=== PATIENT | male | born 1965 | race Caucasian/White ===

== ENCOUNTER 2016-10-30 11:00 | Outpatient (CLI) | payer MEDICAID, MEDICARE | END 2016-10-30 11:01 | disposition home or self-care (01) | DX: E10.9 Type 1 diabetes mellitus without complications (principal) ==

== ENCOUNTER 2016-11-23 21:16 | Outpatient (CLI) | payer MEDICARE | END 2016-11-23 21:17 | disposition EMS.NT | LOC: EMS 21:16 | PROVIDERS: ATTEND Surgery | DX: R41.82 Altered mental status, unspecified (principal) ==

== ENCOUNTER 2016-11-25 03:29 | Outpatient (CLI) | payer MEDICARE | END 2016-11-25 03:30 | disposition EMS.NT | DX: E11.649 Type 2 diabetes mellitus with hypoglycemia without coma (principal) ==

== ENCOUNTER 2017-01-15 10:47 | Outpatient (CLI) | payer MEDICARE | END 2017-01-15 10:48 | disposition EMS.NT | DX: E16.2 Hypoglycemia, unspecified (principal) ==

== ENCOUNTER 2017-04-21 01:52 | Outpatient (CLI) | payer MEDICARE | END 2017-04-21 01:53 | disposition EMS.NT | LOC: EMS 01:52 | PROVIDERS: ATTEND Surgery | DX: E16.2 Hypoglycemia, unspecified (principal) ==

== ENCOUNTER 2017-05-21 20:36 | Outpatient (CLI) | payer MEDICARE | END 2017-05-21 20:37 | disposition EMS.NT | LOC: EMS 20:36 | PROVIDERS: ATTEND Surgery | DX: E11.649 Type 2 diabetes mellitus with hypoglycemia without coma (principal) ==

== ENCOUNTER 2017-05-22 08:27 | Outpatient (CLI) | payer MEDICARE | END 2017-05-22 08:28 | disposition EMS.NT | LOC: EMS 08:27 | PROVIDERS: ATTEND Surgery | DX: Z03.89 Encounter for observation for other suspected diseases and conditions ruled out (principal) ==

== ENCOUNTER 2017-06-09 15:08 | Outpatient (CLI) | payer MEDICARE | END 2017-06-09 15:09 | disposition EMS.NT | LOC: EMS 15:08 | PROVIDERS: ATTEND Surgery | DX: R46.4 Slowness and poor responsiveness (principal) ==

== ENCOUNTER 2017-08-14 06:03 | Outpatient (CLI) | payer MEDICARE | END 2017-08-14 06:04 | disposition EMS.NT | LOC: EMS 06:03 | PROVIDERS: ATTEND Surgery | DX: Z03.89 Encounter for observation for other suspected diseases and conditions ruled out (principal) ==

== ENCOUNTER 2017-08-19 21:42 | Outpatient (CLI) | payer MEDICARE | END 2017-08-19 21:43 | disposition EMS.NT | LOC: EMS 21:42 | PROVIDERS: ATTEND Surgery | DX: R73.09 Other abnormal glucose (principal) ==

== ENCOUNTER 2017-09-17 03:11 | Outpatient (CLI) | payer MEDICARE | END 2017-09-17 03:12 | disposition EMS.NT | LOC: EMS 03:11 | PROVIDERS: ATTEND Surgery | DX: R41.0 Disorientation, unspecified (principal); R73.09 Other abnormal glucose ==

== ENCOUNTER 2017-10-27 16:05 | Outpatient (CLI) | payer MEDICARE | END 2017-10-27 16:06 | disposition EMS.NT | LOC: EMS 16:05 | PROVIDERS: ATTEND Surgery | DX: R53.83 Other fatigue (principal); R73.09 Other abnormal glucose ==

== ENCOUNTER 2017-11-29 20:53 | Outpatient (CLI) | payer MEDICARE | END 2017-11-29 20:54 | disposition EMS.NT | LOC: EMS 20:53 | PROVIDERS: ATTEND Surgery | DX: R41.82 Altered mental status, unspecified (principal); R73.09 Other abnormal glucose ==

== ENCOUNTER 2017-12-07 17:47 | Outpatient (CLI) | payer MEDICARE | END 2017-12-07 17:48 | disposition critical access hospital (66) | LOC: EMS 17:47 | PROVIDERS: ATTEND Surgery | DX: R46.4 Slowness and poor responsiveness (principal); R73.09 Other abnormal glucose | CPT/HCPCS: A0425; A0427 ==

== ENCOUNTER 2017-12-07 18:08 | Inpatient (IN) | payer MEDICARE ==
--- NOTE | 2017-12-07 18:36 | ED Physician Documentation ---
History of Present Illness - Stated complaint Stated Complaint: AMS - Chief complaint Chief Complaint: Cardiac - History obtained from History obtained from: Patient, Family, EMS - History of Present Illness Timing: Today Pain level max: 0 Pain level now: 0 Improved by: D50 Worsened by: nothing - Additonal information Additional information: Altered mental status today. Blood sugar was 23 upon EMS arrival. Given D50 and Blood sugar improved, but still altered per EMS and family. No history of drug use per family. patient unable to give history. No history of alcoholism. Review of Systems Unable to obtain: AMS Constitutional: denies: Fever GI: denies: Vomiting Neurologic: reports: Confused PD PAST MEDICAL HISTORY - Past Medical History Past Medical History: Yes Cardiovascular: Hypertension Endocrine/Autoimmune: Type 1 diabetes - Past Surgical History Past Surgical History: Yes General: Appendectomy - Present Medications Home Medications: Ambulatory Orders Medication Instructions Recorded Confirmed Aspirin [Aspirin EC] 81 mg PO DAILY 12/07/17 12/07/17 Insulin Aspart [NovoLOG] 12/07/17 Insulin Glargine [Lantus Solostar] 30 12/07/17 Lisinopril [Zestril] 12/07/17 - Allergies Allergies/Adverse Reactions: Allergies Allergy/AdvReac Type Severity Reaction Status Date / Time No Known Drug Allergies Allergy Verified 12/07/17 18:17 - Social History Does the pt smoke?: No Smoking Status: Never smoker Does the pt drink ETOH?: Yes Does the pt have substance abuse?: No PD ED PE NORMAL - Vitals Vital signs reviewed: Yes - General General: No acute distress, Other (alert, disoriented) - HEENT HEENT: Moist mucous membranes - Neck Neck: Supple, no meningeal sign - Cardiac Cardiac: RRR, Strong equal pulses - Respiratory Respiratory: No respiratory distress, Clear bilaterally - Abdomen Abdomen: Other (firm, tender suprapubic.) - Back Back: No spinal TTP - Derm Derm: Warm and dry - Extremities Extremities: No deformity - Neuro Neuro: Other (alert, disoriented) Eye Opening: Spontaneous Motor: Localizes to Pain Verbal: Confused GCS Score: 13 Results - Vitals Vitals: Vital Signs - 24 hr 12/07/17 12/07/17 12/07/17 18:09 19:45 20:25 Temperature 37.0 C Heart Rate 104 H 92 112 H Respiratory 20 16 16 Rate Blood Pressure 142/31 H 146/78 H 210/119 H O2 Saturation 99 95 94 12/07/17 12/07/17 20:45 22:07 Temperature Heart Rate 99 93 Respiratory 18 Rate Blood Pressure 143/131 H O2 Saturation 99 100 Oxygen O2 Source Room air - Labs Labs: Laboratory Tests 12/07/17 12/07/17 12/07/17 18:43 18:43 19:10 WBC 9.3 RBC 4.38 L Hgb 13.3 L Hct 39.5 L MCV 90.2 MCH 30.4 MCHC 33.7 RDW 12.9 Plt Count 227 MPV 7.7 Neut # 8.0 H Lymph # 0.8 L Gentry # 0.5 Eos # 0.0 Baso # 0.0 Absolute Nucleated RBC 0.01 Nucleated RBC % 0.1 Sodium 130 L Potassium 3.1 L Chloride 97 L Carbon Dioxide 26 Anion Gap 7.0 BUN 15 Creatinine 0.6 Estimated GFR (MDRD) 142 Glucose 97 Calcium 8.2 L Total Bilirubin 0.5 AST 27 ALT 26 Alkaline Phosphatase 39 L Total Protein 6.6 L Albumin 4.0 Globulin 2.6 Albumin/Globulin Ratio 1.5 Lipase 17 L Urine Color YELLOW Urine Clarity CLEAR Urine pH 5.5 Ur Specific [place] <=1.005 Urine Protein NEGATIVE Urine Glucose (UA) 100 H Urine Ketones NEGATIVE Urine Occult Blood NEGATIVE Urine Nitrite NEGATIVE Urine Bilirubin NEGATIVE Urine Urobilinogen 0.2 (NORMAL) Ur Leukocyte Esterase NEGATIVE Ur Microscopic Review NOT INDICATED Urine Culture Comments NOT INDICATED Salicylates < 6.0 Urine Opiates Screen NEGATIVE Ur Oxycodone Screen NEGATIVE Urine Methadone Screen NEGATIVE Ur Propoxyphene Screen NEGATIVE Acetaminophen < 10 L Ur Barbiturates Screen NEGATIVE Ur Tricyclics Screen NEGATIVE Ur Phencyclidine Scrn NEGATIVE Ur Amphetamine Screen NEGATIVE U Methamphetamines Scrn NEGATIVE U Benzodiazepines Scrn NEGATIVE Urine Cocaine Screen NEGATIVE U Cannabinoids Screen NEGATIVE Ethyl Alcohol < 5.0 - Rads (name of study) head CT Radiology: Prelim report reviewed, EMP read contemporaneously, See rad report ( No acute intracranial abnormality. ) PD MEDICAL DECISION MAKING - ED course Complexity details: reviewed results, re-evaluated patient, considered differential, d/w patient ED course: Patient is a 52-year-old male who presents to the emergency department with hypoglycemia today. He is on Lantus and was given dextrose by EMS, blood sugar improved and his mental status did improve, but not to his normal baseline. Unclear if he had a seizure due to the hypoglycemia and was thought to be possibly postictal? No acute findings on head CT or laboratory testing to explain his symptoms. His abdomen is firm and bedside ultrasound revealed a very distended bladder. Therefore catheterization was performed in 1 L of urine was drained out of his bladder. He does not have a fever. No leukocytosis. He did improve mentally in the emergency department, but still not back to normal. He also had recurrent hypoglycemia. Therefore he was started on dextrose. We will admit the patient for further evaluation of his altered mental status and recurrent hypoglycemia. Discussed the case with Dr. Dill, who accepts. This document was made in part using voice recognition software. While efforts are made to proofread this document, sound alike and grammatical errors may occur. Departure - Departure Disposition: 66 [facility] DC/[facility] Clinical Impression: Hypoglycemia, Urinary retention Condition: Stable Discharge Date/Time: 12/07/17 23:13
[2017-12-07] MEDS ORDERED: LORazepam 2 MG/ML VIAL IVP STA ×2 (18:58→19:33)
[2017-12-07 19:04] LABS: BASOPHILS % (AUTO) 0.2 %; EOSINOPHILS % (AUTO) 0.3 %; HGB - HEMOGLOBIN 13.3 g/dL (14.0-18.0); LYMPHOCYTES # (AUTO) 0.8 10^3/uL (1.5-3.5); LYMPHOCYTES % (AUTO) 8.4 %; MEAN CORPUSCULAR HEMOGLOBIN 30.4 pg (27.0-31.0); MEAN CORPUSCULAR HGB CONC 33.7 g/dL (32.0-36.0); MEAN CORPUSCULAR VOLUME 90.2 fL (80.0-94.0); MEAN PLATELET VOLUME 7.7 fL (7.4-11.4); MONOCYTES # (AUTO) 0.5 10^3/uL (0.0-1.0); NEUTROPHILS % (AUTO) 86.1 %; PLT - PLATELET COUNT 227 10^3/uL (130-450); RED BLOOD COUNT 4.38 10^6/uL (4.70-6.10); RED CELL DISTRIBUTION WIDTH 12.9 % (12.0-15.0); WHITE BLOOD COUNT 9.3 x10^3/uL (4.8-10.8)
[2017-12-07 19:19] LABS: ALBUMIN/GLOBULIN RATIO 1.5 (1.0-2.2); ALKALINE PHOSPHATASE 39 IU/L (42-121); ALT ALANINE AMINOTRANSFERASE 26 IU/L (10-60); AST ASPARTATE AMINOTRANSFERASE 27 IU/L (10-42); BILIRUBIN,TOTAL 0.5 mg/dL (0.2-1.0); BUN - BLOOD UREA NITROGEN 15 mg/dL (6-20); CALCIUM 8.2 mg/dL (8.5-10.3); CARBON DIOXIDE - CO2 26 mmol/L (21-32); CHLORIDE 97 mmol/L (101-111); CREATININE 0.6 mg/dL (0.6-1.2); GFR - MDRD 142 (>89); GLUCOSE 97 mg/dL (70-100); LIPASE 17 U/L (22-51); SALICYLATE < 6.0 mg/dL; SODIUM 130 mmol/L (135-145); TOTAL PROTEIN 6.6 g/dL (6.7-8.2)
[2017-12-07 19:20] LABS: ACETAMINOPHEN < 10 ug/mL (10-30)
[2017-12-07 19:23] LABS: MUDS CUTOFF CONCENTRATIONS CUTOFF CONC BELOW:
[2017-12-07 19:25] LABS: BILIRUBIN,URINE NEGATIVE (NEGATIVE); GLUCOSE, URINE (UA) 100 mg/dL (NEGATIVE); KETONES,URINE (UA) NEGATIVE (NEGATIVE); LEUKOCYTE ESTERASE, URINE NEGATIVE (NEGATIVE); NITRITE,URINE NEGATIVE (NEGATIVE); OCCULT BLOOD,URINE NEGATIVE (NEGATIVE); PH,URINE 5.5 PH (5.0-7.5); PROTEIN,URINE NEGATIVE (NEGATIVE); UROBILINOGEN,URINE 0.2 (NORMAL) E.U./dL (NORMAL)
[2017-12-07 19:26] LABS: CLARITY,URINE CLEAR (CLEAR)
[2017-12-07] MEDS ORDERED: HALOPERIDOL 5 MG/ML VIAL IVP STA (19:33)
[2017-12-07 19:36] LABS: AMPHETAMINE SCREEN,URINE NEGATIVE (NEGATIVE); BENZODIAZEPINES SCREEN, URINE NEGATIVE (NEGATIVE); COCAINE SCREEN URINE NEGATIVE (NEGATIVE); METHADONE SCREEN, URINE NEGATIVE (NEGATIVE); METHAMPHETAMINES SCREEN, URINE NEGATIVE (NEGATIVE); OPIATE SCREEN, URINE NEGATIVE (NEGATIVE); OXYCODONE SCREEN, URINE NEGATIVE (NEGATIVE); PROPOXYPHENE SCREEN, URINE NEGATIVE (NEGATIVE); TRICYCLIC ANTIDEPRESSANT,URINE NEGATIVE (NEGATIVE)
[2017-12-07] MEDS ORDERED: DEXTROSE 50% ABBOJECT 25 GM/50 ML SYRINGE IVP STA (19:41)
[2017-12-07] MEDS ORDERED: DEXTROSE 50% ABBOJECT 25 GM/50 ML SYRINGE ONE (19:53)
--- NOTE | 2017-12-07 20:19 | CT Preliminary Report ---
Exam: CT HEAD W/O IMPRESSION: No acute intracranial abnormality. [facility] SITE ID: [id number]
--- NOTE | 2017-12-07 20:19 | CT Report ---
EXAM: CT HEAD EXAM DATE: 12/07/2017 07:58 PM. CLINICAL HISTORY: Altered level of consciousness. Found unresponsive. Hypoglycemia with blood sugar 2 3. History of type 1 diabetes. COMPARISON: None. TECHNIQUE: Multiaxial CT images were obtained from the foramen magnum to the vertex. Reformats: Coron al. IV contrast: None. In accordance with CT protocol optimization, one or more of the following dose reduction techniques w ere utilized for this exam: automated exposure control, adjustment of mA and/or KV based on patient s ize, or use of iterative reconstructive technique. FINDINGS: Parenchyma: No intraparenchymal hemorrhage, mass effect, or CT findings of evolving acute/subacute in farct. Pandey-white differentiation is distinct. Extraaxial Spaces: Normal for age. No subdural or epidural collections identified. Ventricles: Normal in size and position. Sinuses and Orbits: Imaged paranasal sinuses, orbits, and mastoids show no significant abnormality. Bones: No evidence of fracture or calvarial defect. Other: The visualized superficial soft tissues are unremarkable; no hematoma or edema is evident. Pos t left enucleation. IMPRESSION: No acute intracranial abnormality. [facility] Referring Provider Line: [phone] SITE ID: [id number]
[2017-12-07] MEDS ORDERED: DEXTROSE 5%-0.9% NACL 1,000 ML IV STA (20:49)
[2017-12-07] MEDS ORDERED: KETAMINE 500 MG/10 ML VIAL IM STA (21:46)
[2017-12-07] MEDS ORDERED: SODIUM CHLORIDE FLUSH 0.9% 10 ML SYRINGE IVP PRN (22:20)
[2017-12-07] MEDS ORDERED: HYDROcod/ACETAM 5/325 MG TABLET PO PRN (22:20)
--- NOTE | 2017-12-07 23:22 | HISTORY & PHYSICAL EXAMINATION ---
Chief Complaint - Chief Complaint Chief Complaint: persistant hypoglycenia History of Present Illness - Admitted From Admitted From:: home - History Obtained From History obtained from: ED physician, brother Exam Limitations: pt is sedated - History of Present Illness HPI Comment/Other: Mr. Adam Pastrana is a 52-year-old gentleman with a long history of Type 1 diabetes, onset age 8, who has been having multiple episodes of hypoglycemia over the last couple of years. He has had multiple visits to the emergency department and he usually comes out of these hypoglycemic events with little residual mental status changes however this time the patient's mental status has not cleared despite his blood sugar being normalized. He was found on the floor by his mother who he lives with and brought via EMS to the emergency department where he was found to be significantly hypoglycemic. He had been given D50 in the ambulance however he needed another dose of D50 while in the emergency department. He has been on Lantus and his medication doses have been changed recently according to the family. He will be admitted to medical surgical bed with hourly blood sugar testing and a sliding scale coverage. CT brain scan was negative for any acute pathology and if the patient's mentation does not improve overnight we will consider MRI studies. History - Past Medical History Cardiovascular: reports: Hypertension Endocrine/Autoimmune: reports: Type 1 diabetes MRSA Hx?: No - Past Surgical History General: reports: Appendectomy - Family & Social History Family History: Mother: Alive and Well, Father: (age 81, possible heart failure), Other family: Diabetes, Type 2 (brother) Family History Comment/Other: Family history was obtained from the patient's brother over the telephone; the brother had been drinking and the family history may not be complete. Living arrangement: At home Living Situation: With family - Substance History Use: Uses substance without health or social issues: Alcohol Abuse: Recurrent use of substance despite neg consequences: NONE Dependence: Experiences withdrawal or developed tolerances: NONE - POLST Patient has POLST: No POLST Status: Full Code Meds/Allgy - Home Medications Home Medications: Ambulatory Orders Medication Instructions Recorded Confirmed Aspirin [Aspirin EC] 81 mg PO DAILY 12/07/17 12/07/17 Insulin Aspart [NovoLOG] 12/07/17 Insulin Glargine [Lantus Solostar] 30 12/07/17 Lisinopril [Zestril] 12/07/17 - Allergies Allergies/Adverse Reactions: Allergies Allergy/AdvReac Type Severity Reaction Status Date / Time No Known Drug Allergies Allergy Verified 12/07/17 18:17 Review of Systems - Other Findings Other Findings: I am unable to perform review of systems on this patient as he has been sedated for catheterization. Additionally, his presenting complaint is altered mental status. Exam - Vital Signs Reviewed Vital Signs: Yes Vital Signs: Vital Signs x48h Temp Pulse Resp BP Pulse Ox 12/07/17 22:30 107 H 19 202/116 H 98 12/07/17 22:25 112 H 16 210/119 H 94 12/07/17 22:07 93 143/131 H 100 12/07/17 20:45 99 18 99 12/07/17 20:25 112 H 16 210/119 H 94 12/07/17 19:45 92 16 146/78 H 95 12/07/17 18:09 37.0 C 104 H 20 142/31 H 99 - Physical Exam General Appearance: positive: No acute distress, Lethargic Eyes Bilateral: positive: Normal inspection, PERRL, EOMI, No lid inflammation, Conjunctivae nml, No scleral icterus ENT: positive: ENT inspection nml, Pharynx nml, No signs of dehydration Neck: positive: Nml inspection, Thyroid nml, No JVD, Trachea midline. negative : Thyromegaly Respiratory: positive: No respiratory distress, Breath sounds nml. negative: Wheezes, Rales, Rhonchi Cardiovascular: positive: Regular rate & rhythm, No murmur, No gallop Peripheral Pulses: positive: 1+ Abdomen: positive: Non-tender, No organomegaly, Nml bowel sounds, No distention. negative: Guarding, Rebound Back: positive: Nml inspection. negative: CVA tenderness (R), CVA tenderness (L ) Skin: positive: Color nml, No rash, Warm, Dry. negative: Cyanosis Extremities: positive: Non-tender, Full ROM, Nml appearance, No pedal edema Neurologic/Psychiatric: positive: Other (Patient is sedated however nursing states that he was only oriented to person prior to sedation.) Conclusion/Plan - Problem List (1) Altered mental status Conclusion/Plan: The patient has had multiple ER visits for hypoglycemia and typically returns back to his baseline mentation while in the emergency department. This did not happen this time and the patient has required several doses of D50 to keep up with his dropping blood sugar. There is some question as to whether or not the patient has undergone a seizure however the CT of the brain was essentially negative. Will monitor the patient overnight, and his mentation remains impaired we will get an MRI of his brain in the morning. (2) Hypoglycemia Conclusion/Plan: Almost certainly due to exogenous long-acting insulin. We will check the patient's blood sugars hourly and cover him with D50 and sliding scale until we are sure that the effects of the Lantus have passed. The patient will need to have a new medication regimen as these episodes of hypoglycemia have become fairly regular. (3) Urinary retention Conclusion/Plan: Approximately 2 L urine n the bladder seen on presentation to the emergency department, the patient has had a Ortiz catheter placed. Likely secondary to BPH. We will continue to monitor. (4) Type 1 diabetes mellitus on insulin therapy Conclusion/Plan: The patient's blood sugars have been extremely labile and he is a brittle diabetic. We will stop Lantus and just cover the patient with sliding scale at this time. The patient's medication regimen will need to be adjusted as he has had frequent episodes of hypoglycemia on his current regimen. (5) Hyponatremia Conclusion/Plan: Mild, correcting. - Lab Results Lab results reviewed: Yes Fish Bones: 12/07/17 18:43 12/07/17 18:43 - Diagnostic Imaging Results Diagnostic Imaging Results: positive: Final report reviewed Diagnostic Imaging Results Comments: EXAM: CT HEAD EXAM DATE: 12/07/2017 07:58 PM. CLINICAL HISTORY: Altered level of consciousness. Found unresponsive. Hypoglycemia with blood sugar 23. History of type 1 diabetes. COMPARISON: None. TECHNIQUE: Multiaxial CT images were obtained from the foramen magnum to the vertex. Reformats: Coronal. IV contrast: None. In accordance with CT protocol optimization, one or more of the following dose reduction techniques were utilized for this exam: automated exposure control, adjustment of mA and/or KV based on patient size, or use of iterative reconstructive technique. FINDINGS: Parenchyma: No intraparenchymal hemorrhage, mass effect, or CT findings of evolving acute/subacute infarct. Pandey-white differentiation is distinct. Extraaxial Spaces: Normal for age. No subdural or epidural collections identified. Ventricles: Normal in size and position. Sinuses and Orbits: Imaged paranasal sinuses, orbits, and mastoids show no significant abnormality. Bones: No evidence of fracture or calvarial defect. Other: The visualized superficial soft tissues are unremarkable; no hematoma or edema is evident. Post left enucleation. IMPRESSION: No acute intracranial abnormality. Core Measures - Anticipated LOS I expect patient to be DC'd or transferred within 96 hours.: Yes - DVT/VTE - Prophylaxis VTE/DVT Device ordered at admit?: Yes
[2017-12-07] MEDS: SODIUM CHLORIDE 1 GM TABLET PO SCH (23:52)
[2017-12-08] MEDS: SODIUM CHLORIDE FLUSH 0.9% 10 ML SYRINGE IVP SCH ×2 (00:08→09:18)
[2017-12-08] MEDS: NS W/40 MEQ KCL 1,000 ML IV SCH ×2 (00:15→10:16)
[2017-12-08 00:57] LABS: HB2 TOTAL 14.7 g/dL; HEMOGLOBIN A1C 0.84 g/dL; HEMOGLOBIN A1C % 7.4 % (4.6-6.2)
[2017-12-08] MEDS ORDERED: INSULIN ASPART 300 UNIT/3 ML PEN SUBQ SCH (08:00)
[2017-12-08 08:05] VITALS: BP 143/94
[2017-12-08 08:06] LABS: CALCIUM 8.4 mg/dL (8.5-10.3); CREATININE 0.8 mg/dL (0.6-1.2)
[2017-12-08] MEDS ORDERED: ASPIRIN EC 81 MG TABLET PO SCH (09:00)
[2017-12-08] MEDS ORDERED: POLYETHYLENE GLYCOL 3350 17 GM PACKET PO SCH (09:00)
[2017-12-08] MEDS ORDERED: LISINOPRIL 5 MG TABLET PO SCH (09:00)
[2017-12-08] MEDS: SODIUM CHLORIDE 1 GM TABLET PO SCH (09:18)
--- NOTE | 2017-12-08 10:54 | Discharge Plan ---
Discharge Plan Disposition: 01 Home, Self Care Condition: Stable Diet: Diabetic Activity Restrictions: Activity as Tolerated Instruction Topics: Hypoglycemia Additional Instructions or Follow Up instructions: DECREASE YOUR LANTUS INSULIN DOSES TO 5 U TWICE A DAY. DECREASE YOUR MEALTIME ASPART INSULIN TO 5 U WITH EACH MEAL. The aspirin and Lisiniopril can be resumed. See Dr Ng this week to adjust your diabetic management and for follow-up of the prolonged unresponsiveness, and to get a referral to Neurology. Our [facility] clinic here also offers Diabetic management. Follow-Up Care: [facility] - Diabetes Ed No Smoking: If you smoke, Please STOP! Call for help. Follow-up with: Andrzej Ng MD [Provider Admit Priv/Credential] -
--- NOTE | 2017-12-09 02:16 | DISCHARGE SUMMARY ---
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 The patient again had altered mental status with an episode of hypoglycemia, EMS arrived, despite D50 injection, he remained altered and flaccid. He had another blood sugar that did rise to 160s, he did get another D50 in the ambulance and was brought to the emergency room, where he still had delayed awakening and was therefore admitted for evaluation and management of altered mental status and hypoglycemia. HOSPITAL COURSE AND DISCHARGE DIAGNOSES: 1. Altered mental status. The patient required several doses of D50 to keep up his dropping blood sugar. The mother witnessed his episode and described him as being flaccid, he had no tonic-clonic activity or postictal state when he did awaken. The patient had a head CT that showed no acute intracranial abnormality. The patient had no focal neurologic findings on exam after awakening and was therefore deemed stable for discharge. He was able to stand without orthostasis, was kept on his same blood pressure medications and advised to see his primary care provider within this week for further management and possible further evaluation with a Neurology specialist. This was advised to the patient and mother in the room as well. 2. Hypoglycemia. He has multiple recurrences with this. He required more than 1 amp of D50 on this occasion to keep his glucose elevated. After awakening, he had POC glucose monitoring with glucoses in the 200 range. He was discharged with advice to use a lower dose of his Lantus insulin; not 15 units b.i.d., but 5 units b.i.d. and lower nutritional insulin; not 10 units with each meal, but 5 units with each meal. He was also advised to see his PCP, Dr. Ng this week for further management and adjustments of his medications. 4. Urinary retention. The patient had approximately 2 liters of urine in the bladder seen on presentation in the emergency room. A Ortiz was placed. This was later removed. He was able to urinate without hesitation. This will need to be monitored and evaluated. 5. Type 1 diabetes, on insulin. The patient is a brittle diabetic. The Lantus and nutritional insulin doses were adjusted as described above. He already has complications of blindness with his diabetes. His MADELYN inhibitor was continued at the time of discharge. 6. Hyponatremia. The patient's admission sodium was 130 despite a low presenting glucose. He had saline IV hydration with improvement of sodium to 133 at discharge. ALLERGIES: NO KNOWN ALLERGIES. MEDICATIONS AT THE TIME OF DISCHARGE: 1. Baby aspirin daily. 2. Lisinopril 5 mg daily. 3. Aspart nutritional insulin 5 units sq t.i.d. 4. Lantus SoloSTAR insulin 5 units sq b.i.d. LABORATORY AND IMAGING: Reviewed and summarized above. PHYSICAL EXAMINATION: VITAL SIGNS: Blood pressure 143/94, pulse of 87 in sinus rhythm, afebrile, room air saturation 99%. HEENT: Unremarkable except the left eye is blind; he squints with it. The right eye has decreased vision and possibly cataracts. NECK: Without JVD or carotid bruits. CHEST: Clear. HEART: Sounds normal. ABDOMEN: Soft, nontender. EXTREMITIES: Without edema. NEUROLOGIC: As described above with the abnormal vision, otherwise intact. FOLLOWUP: With Dr. Ng this week for further diabetes management. Recommend Neurology evaluation and Urology evaluation as well. CODE STATUS: FULL CODE. Time required to complete this entire discharge, chart review, medication orders : 30 minutes. TD: 12/08/2017 19:27 MTDD
== END 2017-12-08 11:40 | disposition home or self-care (01) | DRG 638 ==
LOC: EDUNIT# → ED 18:08 → ICU 22:20
PROVIDERS: ADMIT Hospitalist; ATTEND Internal Medicine
DX: E10.649 Type 1 diabetes mellitus with hypoglycemia without coma (principal); E87.1 Hypo-osmolality and hyponatremia; R33.9 Retention of urine, unspecified; E10.39 Type 1 diabetes mellitus with other diabetic ophthalmic complication; H54.7 Unspecified visual loss; I10 Essential (primary) hypertension; Z79.82 Long term (current) use of aspirin; Z79.4 Long term (current) use of insulin; Z79.899 Other long term (current) drug therapy
CPT/HCPCS: 36415; 51701; 51702; 51798; 70450; 80048; 80053; 80306; 80307; 80320; 80329; 81001; 81003; 83036; 83690; 85025; 87086; 87150; 96361; 96372; 96374; 96376; 99284; 99285

== ENCOUNTER 2017-12-21 17:08 | Outpatient (CLI) | payer MEDICARE | END 2017-12-21 17:09 | disposition EMS.NT | LOC: EMS 17:08 | PROVIDERS: ATTEND Surgery | DX: R41.82 Altered mental status, unspecified (principal); R73.09 Other abnormal glucose ==

== ENCOUNTER 2017-12-28 | Outpatient (CLI) | END 2017-12-28 09:46 | disposition short-term general hospital (02) | CPT/HCPCS: A0425; A0427; A0888 ==

== ENCOUNTER 2018-02-14 13:05 | Outpatient (CLI) | payer MEDICARE | END 2018-02-14 13:06 | disposition EMS.NT | LOC: EMS 13:05 | PROVIDERS: ATTEND Surgery | DX: R46.4 Slowness and poor responsiveness (principal); R73.09 Other abnormal glucose ==

== ENCOUNTER 2018-03-26 06:17 | Outpatient (CLI) | payer MEDICARE, OTHER | END 2018-03-26 06:18 | disposition EMS.NT | LOC: EMS 06:17 | PROVIDERS: ATTEND Surgery | DX: R41.82 Altered mental status, unspecified (principal); R73.09 Other abnormal glucose ==

== ENCOUNTER 2018-03-28 13:06 | Outpatient (CLI) | payer MEDICARE | END 2018-03-28 13:07 | disposition EMS.NT | LOC: EMS 13:06 | PROVIDERS: ATTEND Surgery | DX: R46.4 Slowness and poor responsiveness (principal); R73.09 Other abnormal glucose ==

== ENCOUNTER 2018-03-29 12:47 | Outpatient (CLI) | payer MEDICARE | END 2018-03-29 12:48 | disposition EMS.NT | LOC: EMS 12:47 | PROVIDERS: ATTEND Surgery | DX: R46.4 Slowness and poor responsiveness (principal); R73.09 Other abnormal glucose ==

== ENCOUNTER 2018-06-19 06:01 | Outpatient (CLI) | payer MEDICARE, OTHER | END 2018-06-19 06:02 | disposition EMS.NT | LOC: EMS 06:01 | PROVIDERS: ATTEND Surgery | DX: R46.89 Other symptoms and signs involving appearance and behavior (principal); R73.09 Other abnormal glucose ==

== ENCOUNTER 2018-09-24 13:58 | Outpatient (CLI) | payer OTHER | END 2018-09-24 13:59 | disposition EMS.NT | LOC: EMS 13:58 | PROVIDERS: ATTEND Surgery | DX: E16.2 Hypoglycemia, unspecified (principal) ==

== ENCOUNTER 2018-11-04 08:41 | Outpatient (CLI) | payer MEDICARE | END 2018-11-04 08:42 | disposition EMS.NT | LOC: EMS 08:41 | PROVIDERS: ATTEND Surgery | DX: R46.89 Other symptoms and signs involving appearance and behavior (principal) ==

== ENCOUNTER 2018-11-29 00:32 | Outpatient (CLI) | payer MEDICARE | END 2018-11-29 00:33 | disposition EMS.NT | LOC: EMS 00:32 | PROVIDERS: ATTEND Surgery | DX: R41.0 Disorientation, unspecified (principal); R73.09 Other abnormal glucose ==

== ENCOUNTER 2019-01-20 12:12 | Outpatient (CLI) | payer MEDICARE | END 2019-01-20 12:13 | disposition EMS.NT | LOC: EMS 12:12 | PROVIDERS: ATTEND Surgery | DX: R41.0 Disorientation, unspecified (principal); R73.09 Other abnormal glucose ==

== ENCOUNTER 2019-03-14 04:19 | Outpatient (CLI) | payer MEDICARE | END 2019-03-14 04:20 | disposition EMS.NT | LOC: EMS 04:19 | PROVIDERS: ATTEND Surgery | DX: R73.09 Other abnormal glucose (principal) | CPT/HCPCS: A0425; A0998 ==

== ENCOUNTER 2019-03-16 10:55 | Outpatient (CLI) | payer MEDICARE | END 2019-03-16 10:56 | disposition EMS.NT | LOC: EMS 10:55 | PROVIDERS: ATTEND Surgery | DX: R41.82 Altered mental status, unspecified (principal); R73.09 Other abnormal glucose | CPT/HCPCS: A0425; A0998 ==

== ENCOUNTER 2019-03-18 02:03 | Outpatient (CLI) | payer MEDICARE | END 2019-03-18 02:04 | disposition EMS.NT | LOC: EMS 02:03 | PROVIDERS: ATTEND Surgery | DX: R46.89 Other symptoms and signs involving appearance and behavior (principal); R73.09 Other abnormal glucose | CPT/HCPCS: A0425; A0998 ==

== ENCOUNTER 2019-03-22 20:11 | Outpatient (CLI) | payer MEDICARE | END 2019-03-22 20:12 | disposition EMS.NT | LOC: EMS 20:11 | PROVIDERS: ATTEND Surgery | DX: R46.4 Slowness and poor responsiveness (principal); R73.09 Other abnormal glucose | CPT/HCPCS: A0425; A0998 ==

== ENCOUNTER 2020-01-03 08:54 | Outpatient (CLI) | payer MEDICARE ==
[2020-01-03 12:29] LABS: EOSINOPHILS # (AUTO) 0.2 10^3/uL (0.0-0.7); EOSINOPHILS % (AUTO) 6.1 %; HGB - HEMOGLOBIN 15.2 g/dL (14.0-18.0); LYMPHOCYTES # (AUTO) 1.3 10^3/uL (1.5-3.5); LYMPHOCYTES % (AUTO) 40.4 %; MEAN CORPUSCULAR HEMOGLOBIN 32.1 pg (27.0-31.0); MEAN CORPUSCULAR HGB CONC 34.6 g/dL (32.0-36.0); MEAN CORPUSCULAR VOLUME 92.8 fL (80.0-94.0); MEAN PLATELET VOLUME 10.6 fL (7.4-11.4); MONOCYTES # (AUTO) 0.3 10^3/uL (0.0-1.0); MONOCYTES % (AUTO) 9.9 %; NEUTROPHILS # (AUTO) 1.3 10^3/uL (1.5-6.6); NEUTROPHILS % (AUTO) 42.6 %; PLT - PLATELET COUNT 270 10^3/uL (130-450); RED BLOOD COUNT 4.73 10^6/uL (4.70-6.10); RED CELL DISTRIBUTION WIDTH 12.4 % (12.0-15.0); WHITE BLOOD COUNT 3.1 x10^3/uL (4.8-10.8)
[2020-01-03 12:46] LABS: HB2 TOTAL 15.7 g/dL; HEMOGLOBIN A1C 1.31 g/dL; HEMOGLOBIN A1C % 9.8 % (4.6-6.2)
[2020-01-03 12:57] LABS: ALBUMIN 4.1 g/dL (3.2-5.5); ALBUMIN/GLOBULIN RATIO 1.3 (1.0-2.2); ALKALINE PHOSPHATASE 56 IU/L (42-121); ALT ALANINE AMINOTRANSFERASE 31 IU/L (10-60); AST ASPARTATE AMINOTRANSFERASE 26 IU/L (10-42); BILIRUBIN,TOTAL 1.6 mg/dL (0.2-1.0); BUN - BLOOD UREA NITROGEN 16 mg/dL (6-20); CALCIUM 9.4 mg/dL (8.5-10.3); CARBON DIOXIDE - CO2 30 mmol/L (21-32); CHLORIDE 95 mmol/L (101-111); CHOL/HDL RATIO 3.5 (<5.0); CHOLESTEROL 218 mg/dL; CREATININE 0.7 mg/dL (0.6-1.2); GLUCOSE 253 mg/dL (70-100); HDL CHOLESTEROL 63 mg/dL; LDL CHOLESTEROL,CALCULATED 145 mg/dL; LDL/HDL RATIO 2.3 (<3.6); SODIUM 137 mmol/L (135-145); TOTAL PROTEIN 7.3 g/dL (6.7-8.2); VLDL CHOLESTEROL 10 mg/dL
[2020-01-03 13:12] LABS: CREATININE,URINE 234.4 mg/dL; MICROALBUM/CREATININE RATIO,UR 3.8 ug/mg (<30.0); MICROALBUMIN,URINE 0.9 mg/dL (0-300.0)
== END 2020-01-03 23:59 | disposition home or self-care (01) ==
LOC: LAB.WCP 08:54
PROVIDERS: ATTEND Family Medicine
DX: E10.9 Type 1 diabetes mellitus without complications (principal)
CPT/HCPCS: 36415; 80053; 80061; 82043; 82570; 83036; 83721; 84443; 85025

== ENCOUNTER 2020-01-04 20:52 | Outpatient (CLI) | payer MEDICARE | END 2020-01-04 20:53 | disposition EMS.NT | LOC: EMS 20:52 | PROVIDERS: ATTEND Surgery | DX: R41.82 Altered mental status, unspecified (principal); R73.09 Other abnormal glucose ==

== ENCOUNTER 2020-01-18 17:18 | Outpatient (CLI) | payer MEDICARE | END 2020-01-18 17:19 | disposition EMS.NT | LOC: EMS 17:18 | PROVIDERS: ATTEND Surgery | DX: R46.89 Other symptoms and signs involving appearance and behavior (principal); R73.09 Other abnormal glucose ==

== ENCOUNTER 2020-04-19 19:09 | Outpatient (CLI) | payer MEDICARE | END 2020-04-19 19:10 | disposition EMS.NT | LOC: EMS 19:09 | PROVIDERS: ATTEND Surgery | DX: R73.09 Other abnormal glucose (principal) ==

== ENCOUNTER 2020-07-19 19:35 | Outpatient (CLI) | payer MEDICARE ==
--- OUTSIDE RECORDS SUMMARY | 2020-07-26 00:54 | EXTERNAL MEDICAL SUMMARY RPT | Continuity of Care Document ---
:1965 Demographics Phone Unavailable Preferred Language Yemeni Marital Status Unknown Cheondoism Affiliation Unknown Race Unknown Ethnic Group Unknown Author Organization [facility] Address [address] [phone] Phone Care Team Providers Name Role Phone [place] Unavailable Unavailable [place] Unavailable Unavailable Problems date description facility Never smoked tobacco (finding) [facility] Finding [facility] Allergies date description facility vancomycin [facility] CODEINE [facility] FLUOXETINE [facility] No Known Drug Allergies [facility] Medications date description facility 2020-06-02 00:00:00 Acetaminophen 325 MG / Hydrocodone Is Located within [facility] Bitartrate 5 MG Oral Tablet Procedures date description facility 2020-06-02 00:00:00 [facility] date description facility 2020-06-02 00:00:00 General Physician [facility] Social History date description facility [id number] Never smoked tobacco (finding) [facility] Social History date description facility [id number] Never smoked tobacco (finding) [facility] date description facility [id number]
== END 2020-07-19 19:36 ==
LOC: EMS 19:35
PROVIDERS: ATTEND Surgery
DX: R61 Generalized hyperhidrosis (principal); R41.82 Altered mental status, unspecified

== ENCOUNTER 2020-09-05 12:59 | Outpatient (CLI) | payer MEDICARE | END 2020-09-05 13:00 | disposition left against medical advice (07) | LOC: EMS 12:59 | DX: R61 Generalized hyperhidrosis (principal); R45.89 Other symptoms and signs involving emotional state ==

== ENCOUNTER 2020-11-09 22:57 | Outpatient (CLI) | payer MEDICARE | END 2020-11-09 22:58 | disposition critical access hospital (66) | LOC: EMS 22:57 | DX: R40.4 Transient alteration of awareness (principal) | CPT/HCPCS: A0425; A0427 ==

== ENCOUNTER 2020-11-09 23:17 | Emergency (ER) | payer MEDICARE ==
--- NOTE | 2020-11-10 00:50 | ED Physician Documentation ---
History of Present Illness - Stated complaint Stated Complaint: LOW BLOOD SUGAR - Chief complaint Chief Complaint: Neuro - History obtained from History obtained from: Patient - Additonal information Additional information: 55-year-old man with past medical history of diabetes, blindness, chronic alcohol use, presents with unresponsiveness this evening. Patient was seen normal at 8 PM and then at 2229 he was found by family diaphoretic and minimally responsive. EMS arrived on scene and she was found to have a fingerstick glucose of 24, received an amp of D50 and it went up to 185, then 106, then 64 in the emergency department here. He was given food and D5 with improvement in his mental status. Patient was able to tell me that he had 4 alcoholic beverages this evening and did not eat dinner. He is unsure whether he took his Humulin but does think that he took 25 units of Lantus this evening.Otherwise is asymptomatic and had been feeling normal. Review of Systems Ten Systems: 10 systems reviewed and negative Constitutional: denies: Fever, Chills Neurologic: reports: Confused, Altered mental status PD PAST MEDICAL HISTORY - Past Medical History Past Medical History: Yes Cardiovascular: Hypertension Endocrine/Autoimmune: Type 1 diabetes - Past Surgical History Past Surgical History: Yes General: Appendectomy - Present Medications Home Medications: Ambulatory Orders Medication Instructions Recorded Confirmed Aspirin [Aspirin EC] 81 mg PO DAILY 12/07/17 12/07/17 lisinopriL [Zestril] 5 mg PO DAILY 12/07/17 12/08/17 Insulin Aspart [NovoLOG] 5 units SQ TIDWM #0 12/08/17 12/08/17 Insulin Glargine [Lantus Solostar] 5 units SQ DAILY #0 12/08/17 12/08/17 Insulin Glargine [Lantus Solostar] 5 units SQ QPM #0 12/08/17 12/08/17 - Allergies Allergies/Adverse Reactions: Allergies Allergy/AdvReac Type Severity Reaction Status Date / Time No Known Drug Allergies Allergy Verified 12/07/17 18:17 - Social History Does the pt smoke?: No Smoking Status: Never smoker Does the pt drink ETOH?: Yes Does the pt have substance abuse?: No - Immunizations Immunizations are current?: Yes - POLST Patient has POLST: No POLST Status: Full Code PD ED PE NORMAL - Vitals Vital signs reviewed: Yes - General General: Alert and oriented X 3, No acute distress, Well developed/nourished, Other (initially with slow speech and some confusion. ) - HEENT HEENT: Atraumatic, PERRL, EOMI - Neck Neck: Supple, no meningeal sign - Cardiac Cardiac: RRR - Respiratory Respiratory: No respiratory distress, Clear bilaterally - Abdomen Abdomen: Non tender, Non distended - Male Male : Deferred - Rectal Rectal: Deferred - Back Back: No CVA TTP - Derm Derm: Normal color - Extremities Extremities: No deformity - Neuro Neuro: Alert and oriented X 3 - Psych Psych: Normal mood, Normal affect Results - Vitals Vitals: Vital Signs - 24 hr 11/09/20 11/10/20 11/10/20 23:20 00:30 01:19 Temperature 33.8 C L 36.6 C Heart Rate 60 65 60 Respiratory 16 16 19 Rate Blood Pressure 161/92 H 143/93 H 143/93 H O2 Saturation 100 100 100 Oxygen O2 Source Room air PD MEDICAL DECISION MAKING - ED course ED course: 55-year-old man presented to the ED with hypoglycemic episode, initially with decreased responsiveness improving after getting dextrose and food. He is now back to baseline and requesting to go home. Strict return precautions given. Patient will follow up with his primary doctor. Departure - Departure Disposition: 01 Home, Self Care Clinical Impression: Hypoglycemia, Alcohol abuse Condition: Good Instructions: Hypoglycemia Comments: You were seen in the emergency department for low blood sugar. Please try to decrease your alcohol consumption and make sure that you do not skip meals. 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 Return to the emergency department if you experience any new or worsening symptoms or have other concerns. Discharge Date/Time: 11/10/20 01:40
[2020-11-10 01:10] VITALS: BP 143/93
== END 2020-11-10 01:40 | disposition home or self-care (01) ==
LOC: EDUNIT# → ED 23:17
DX: E10.649 Type 1 diabetes mellitus with hypoglycemia without coma (principal); R41.0 Disorientation, unspecified; F10.10 Alcohol abuse, uncomplicated; I10 Essential (primary) hypertension; H54.7 Unspecified visual loss; Z79.82 Long term (current) use of aspirin
CPT/HCPCS: 99281; 99283

== ENCOUNTER 2020-12-13 22:28 | Outpatient (CLI) | payer MEDICARE | END 2020-12-13 22:29 | disposition EMS.NT | LOC: EMS 22:28 | DX: R40.4 Transient alteration of awareness (principal) ==

== ENCOUNTER 2020-12-25 08:00 | Outpatient (CLI) | payer MEDICARE ==
[2020-12-25 18:17] LABS: BUN - BLOOD UREA NITROGEN 20 mg/dL (6-20); CALCIUM 9.8 mg/dL (8.5-10.3); CARBON DIOXIDE - CO2 32 mmol/L (21-32); CHLORIDE 102 mmol/L (101-111); CHOL/HDL RATIO 3.3 (<5.0); CHOLESTEROL 212 mg/dL; CREATININE 0.8 mg/dL (0.6-1.2); CREATININE,URINE 229.5 mg/dL; GFR - MDRD 101 (>89); GLUCOSE 68 mg/dL (70-100); HDL CHOLESTEROL 64 mg/dL; LDL CHOLESTEROL,CALCULATED 138 mg/dL; LDL/HDL RATIO 2.2 (<3.6); MICROALBUMIN,URINE 0.6 mg/dL (0-300.0); POTASSIUM 4.8 mmol/L (3.5-5.0); SODIUM 142 mmol/L (135-145); TRIGLYCERIDES 49 mg/dL; VLDL CHOLESTEROL 10 mg/dL
[2020-12-25 20:13] LABS: ESTIMATED AVERAGE GLUCOSE 148 mg/dL (70-100); HEMOGLOBIN A1c% 6.8 % (4.27-6.07)
== END 2020-12-25 23:59 | disposition home or self-care (01) ==
LOC: LAB.WCP 08:00
PROVIDERS: ATTEND Internal Medicine
DX: E10.9 Type 1 diabetes mellitus without complications (principal)
CPT/HCPCS: 36415; 80048; 80061; 82043; 82570; 83036; 83721; 84156

== ENCOUNTER 2021-05-20 12:43 | Outpatient (CLI) | payer MEDICARE | END 2021-05-20 12:44 | disposition critical access hospital (66) | LOC: EMS 12:43 | DX: R73.9 Hyperglycemia, unspecified (principal); R29.898 Other symptoms and signs involving the musculoskeletal system | CPT/HCPCS: A0425; A0427 ==

== ENCOUNTER 2021-05-20 13:04 | Observation (INO) | payer MEDICARE ==
[2021-05-20] MEDS ORDERED: SODIUM CHLORIDE 0.9% 1,000 ML IV STA ×2 (13:15→14:29)
--- NOTE | 2021-05-20 13:43 | XRAY Report ---
PROCEDURE: Chest 1 View X-Ray INDICATIONS: chest pain TECHNIQUE: One view of the chest was acquired. COMPARISON: None FINDINGS: The inferior right costophrenic angle is not included within the [id number] of this josefina dy. Surgical changes and devices: None. Lungs and pleura: No pleural effusions or pneumothorax. Lungs are clear. Mediastinum: Mediastinal contours appear normal. Heart size is normal. Bones and chest wall: No suspicious bony lesions. Overlying soft tissues appear unremarkable. IMPRESSION: Mildly limited portable chest study, without an acute abnormality identified. Reviewed by: Yaniv Cline MD on 05/20/2021 12:[address] [facility] Approved by: Yaniv Cline MD on 05/20/2021 12:[address] [facility] Station ID: [id number]
--- NOTE | 2021-05-20 13:43 | ED Physician Documentation ---
History of Present Illness - Stated complaint Stated Complaint: DIABETIC ISSUE - Chief complaint Chief Complaint: General - Additonal information Additional information: This is a type I diabetic who presents to the emergency department for e valuation of hyperglycemia. 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 He has been followed by a diabetic education nurse here in [place]. He was recently started on a continuous glucose monitor which had been working well up until about 2 weeks ago. When the continuous glucose monitor stopped working he was unable to check his blood sugars. He did not check by fingerstick in the traditional way as he did not want to impose on friends or family. Over the last week he has had some nausea but no vomiting. He does endorse a headache. His daughter was visiting this morning and should he asked her to check his sugars and they were noted to be nearly 600. He did take 10 units of Humalog and called 911 thus he presents here. Typically he takes 12 units of Lantus twice daily as well as Humalog approximately 10 units with each meal. He is on lisinopril as well as a statin. No tobacco use. He reports drinking heavily 2-3 times a month though over the last 2 weeks he is drank more due to hollowing events. He also took some Dale Tylenol 3 this morning for headache. He denies any fevers. He is not vaccinated for COVID-19 as his doctor advised him not to. Review of Systems Eyes: reports: Loss of vision (baseline) Nose: reports: Reviewed and negative Throat: reports: Reviewed and negative Cardiac: denies: Chest pain / pressure, Palpitations Respiratory: denies: Dyspnea, Cough GI: reports: Nausea. denies: Abdominal Pain, Vomiting, Diarrhea : reports: Reviewed and negative Skin: reports: Reviewed and negative Musculoskeletal: reports: Reviewed and negative Neurologic: reports: Reviewed and negative Psychiatric: reports: Reviewed and negative PD PAST MEDICAL HISTORY - Past Medical History Cardiovascular: Hypertension Endocrine/Autoimmune: Type 1 diabetes - Past Surgical History Past Surgical History: Yes General: Appendectomy - Present Medications Home Medications: Ambulatory Orders Medication Instructions Recorded Confirmed Aspirin [Aspirin EC] 81 mg PO DAILY 12/07/17 05/20/21 lisinopriL [Zestril] 5 mg PO DAILY 12/07/17 05/20/21 Insulin Aspart [NovoLOG] 5 units SQ TIDWM #0 12/08/17 05/20/21 Insulin Glargine [Lantus Solostar] 12 units SQ DAILY 05/20/21 05/20/21 Insulin Glargine [Lantus Solostar] 14 units SQ QPM 05/20/21 05/20/21 Rosuvastatin Calcium [Crestor] 10 mg PO DAILY 05/20/21 05/20/21 - Allergies Allergies/Adverse Reactions: Allergies Allergy/AdvReac Type Severity Reaction Status Date / Time No Known Drug Allergies Allergy Verified 05/20/21 13:09 - Social History Does the pt smoke?: No Smoking Status: Never smoker Does the pt drink ETOH?: Yes Does the pt have substance abuse?: No - Immunizations Immunizations are current?: Yes - POLST Patient has POLST: No POLST Status: Full Code PD ED PE NORMAL - General General: Alert and oriented X 3, No acute distress - HEENT HEENT: PERRL, Ears normal, Moist mucous membranes, Pharynx benign - Neck Neck: Supple, no meningeal sign, No adenopathy - Cardiac Cardiac: RRR, No murmur, No gallop, Strong equal pulses, Other (Tachycardic into the 120s. Sinus) - Respiratory Respiratory: No respiratory distress, Clear bilaterally - Abdomen Abdomen: Normal bowel sounds, Soft, Non tender - Back Back: No CVA TTP, No spinal TTP - Derm Derm: No rash - Neuro Neuro: Alert and oriented X 3, No motor deficit, No sensory deficit, Normal speech. 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 (Blind in both eyes cranial nerves otherwise intact.) Eye Opening: Spontaneous Motor: Obeys Commands Verbal: Oriented GCS Score: 15 - Psych Psych: Normal mood, Normal affect Results - Vitals Vitals: Vital Signs - 24 hr 05/20/21 05/20/21 05/20/21 13:09 13:50 15:38 Temperature 37.1 C Heart Rate 120 H 115 H 108 H Respiratory 16 18 28 H Rate Blood Pressure 137/100 H 149/108 H 163/102 H O2 Saturation 100 99 99 Oxygen O2 Source Room air - EKG (time done) 1321 Rate: Rate (enter#) (118) Rhythm: Sinus tachycardia [place]: Normal Intervals: Prolonged QT QRS: Normal Ischemia: Normal ST segments Compare to prior EKG: Old EKG unavailable Computer interpretation: Agree with computer - Labs Labs: Laboratory Tests 05/20/21 05/20/21 05/20/21 13:09 13:50 13:50 WBC 8.0 RBC 4.89 Hgb 15.6 Hct 43.9 MCV 89.8 MCH 31.9 H MCHC 35.5 RDW 12.0 Plt Count 274 MPV 10.3 Neut # (Auto) 5.7 Lymph # (Auto) 1.4 L [place] # (Auto) 0.8 Eos # (Auto) 0.1 Baso # (Auto) 0.0 Absolute Nucleated RBC 0.00 Nucleated RBC % 0.0 VBG pH VBG pCO2 VBG pO2 VBG HCO3 VBG Total CO2 VBG O2 Saturation VBG Base Excess Sodium 132 L Potassium 4.1 Chloride 94 L Carbon Dioxide 27 Anion Gap 11.0 BUN 20 Creatinine 1.0 Estimated GFR (MDRD) 78 L Glucose 451 H POC Whole Bld Glucose 487 H Lactic Acid Calcium 9.4 Total Bilirubin 0.9 AST 32 ALT 36 Alkaline Phosphatase 61 Troponin I High Sens Total Protein 7.9 Albumin 4.4 Globulin 3.5 Albumin/Globulin Ratio 1.3 Lipase 23 Urine Color Urine Clarity Urine pH Ur Specific [place] Urine Protein Urine Glucose (UA) Urine Ketones Urine Occult Blood Urine Nitrite Urine Bilirubin Urine Urobilinogen Ur Leukocyte Esterase Ur Microscopic Review Urine Culture Comments Nasal Adenovirus (PCR) Nasal B. parapertussis DNA (PCR) Nasal Coronavir 229E PCR Nasal Coronavir HKU1 PCR Nasal Coronavir NL63 PCR Nasal Coronavir OC43 PCR Nasal Enterovir/Rhinovir PCR Nasal Influenza B PCR Nasal Influenza A PCR Nasal Parainfluen 1 PCR Nasal Parainfluen 2 PCR Nasal Parainfluen 3 PCR Nasal Parainfluen 4 PCR Nasal RSV (PCR) Nasal B.pertussis DNA PCR Nasal C.pneumoniae (PCR) Pierre Human Metapneumo PCR Nasal M.pneumoniae (PCR) Nasal SARS-CoV-2 (PCR) Urine Opiates Screen Ur Oxycodone Screen Urine Methadone Screen Ur Propoxyphene Screen Ur Barbiturates Screen Ur Tricyclics Screen Ur Phencyclidine Scrn Ur Amphetamine Screen U Methamphetamines Scrn U Benzodiazepines Scrn Urine Cocaine Screen U Cannabinoids Screen Serum Ketones NEGATIVE 05/20/21 05/20/21 05/20/21 13:50 13:50 13:50 WBC RBC Hgb Hct MCV MCH MCHC RDW Plt Count MPV Neut # (Auto) Lymph # (Auto) Union # (Auto) Eos # (Auto) Baso # (Auto) Absolute Nucleated RBC Nucleated RBC % VBG pH 7.332 VBG pCO2 54.0 H VBG pO2 19.7 L VBG HCO3 28.0 VBG Total CO2 29.6 H VBG O2 Saturation 30.1 L VBG Base Excess 0.8 Sodium Potassium Chloride Carbon Dioxide Anion Gap BUN Creatinine Estimated GFR (MDRD) Glucose POC Whole Bld Glucose Lactic Acid 2.7 H Calcium Total Bilirubin AST ALT Alkaline Phosphatase Troponin I High Sens 148.0 H* Total Protein Albumin Globulin Albumin/Globulin Ratio Lipase Urine Color Urine Clarity Urine pH Ur Specific [place] Urine Protein Urine Glucose (UA) Urine Ketones Urine Occult Blood Urine Nitrite Urine Bilirubin Urine Urobilinogen Ur Leukocyte Esterase Ur Microscopic Review Urine Culture Comments Nasal Adenovirus (PCR) Nasal B. parapertussis DNA (PCR) Nasal Coronavir 229E PCR Nasal Coronavir HKU1 PCR Nasal Coronavir NL63 PCR Nasal Coronavir OC43 PCR Nasal Enterovir/Rhinovir PCR Nasal Influenza B PCR Nasal Influenza A PCR Nasal Parainfluen 1 PCR Nasal Parainfluen 2 PCR Nasal Parainfluen 3 PCR Nasal Parainfluen 4 PCR Nasal RSV (PCR) Nasal B.pertussis DNA PCR Nasal C.pneumoniae (PCR) Pierre Human Metapneumo PCR Nasal M.pneumoniae (PCR) Nasal SARS-CoV-2 (PCR) Urine Opiates Screen Ur Oxycodone Screen Urine Methadone Screen Ur Propoxyphene Screen Ur Barbiturates Screen Ur Tricyclics Screen Ur Phencyclidine Scrn Ur Amphetamine Screen U Methamphetamines Scrn U Benzodiazepines Scrn Urine Cocaine Screen U Cannabinoids Screen Serum Ketones 05/20/21 05/20/21 05/20/21 13:50 13:50 15:23 WBC RBC Hgb Hct MCV MCH MCHC RDW Plt Count MPV Neut # (Auto) Lymph # (Auto) [place] # (Auto) Eos # (Auto) Baso # (Auto) Absolute Nucleated RBC Nucleated RBC % VBG pH VBG pCO2 VBG pO2 VBG HCO3 VBG Total CO2 VBG O2 Saturation VBG Base Excess Sodium Potassium Chloride Carbon Dioxide Anion Gap BUN Creatinine Estimated GFR (MDRD) Glucose POC Whole Bld Glucose Lactic Acid Calcium Total Bilirubin AST ALT Alkaline Phosphatase Troponin I High Sens 115.4 H* Total Protein Albumin Globulin Albumin/Globulin Ratio Lipase Urine Color YELLOW Urine Clarity CLEAR Urine pH 6.0 Ur Specific [place] 1.010 Urine Protein NEGATIVE Urine Glucose (UA) >=1000 H Urine Ketones TRACE Urine Occult Blood NEGATIVE Urine Nitrite NEGATIVE Urine Bilirubin NEGATIVE Urine Urobilinogen 0.2 (NORMAL) Ur Leukocyte Esterase NEGATIVE Ur Microscopic Review NOT INDICATED Urine Culture Comments NOT INDICATED Nasal Adenovirus (PCR) NOT DETECTED Nasal B. parapertussis DNA (PCR) NOT DETECTED Nasal Coronavir 229E PCR NOT DETECTED Nasal Coronavir HKU1 PCR NOT DETECTED Nasal Coronavir NL63 PCR NOT DETECTED Nasal Coronavir OC43 PCR NOT DETECTED Nasal Enterovir/Rhinovir PCR NOT DETECTED Nasal Influenza B PCR NOT DETECTED Nasal Influenza A PCR NOT DETECTED Nasal Parainfluen 1 PCR NOT DETECTED Nasal Parainfluen 2 PCR NOT DETECTED Nasal Parainfluen 3 PCR NOT DETECTED Nasal Parainfluen 4 PCR NOT DETECTED Nasal RSV (PCR) NOT DETECTED Nasal B.pertussis DNA PCR NOT DETECTED Nasal C.pneumoniae (PCR) NOT DETECTED Pierre Human Metapneumo PCR NOT DETECTED Nasal M.pneumoniae (PCR) NOT DETECTED Nasal SARS-CoV-2 (PCR) NOT DETECTED Urine Opiates Screen NEGATIVE Ur Oxycodone Screen NEGATIVE Urine Methadone Screen NEGATIVE Ur Propoxyphene Screen NEGATIVE Ur Barbiturates Screen NEGATIVE Ur Tricyclics Screen NEGATIVE Ur Phencyclidine Scrn NEGATIVE Ur Amphetamine Screen POSITIVE H U Methamphetamines Scrn POSITIVE H U Benzodiazepines Scrn NEGATIVE Urine Cocaine Screen NEGATIVE U Cannabinoids Screen POSITIVE H Serum Ketones - Rads (name of study) CXR Radiology: Final report received (no acute process) PD MEDICAL DECISION MAKING - ED course Complexity details: reviewed results, re-evaluated patient, d/w patient, d/w family ED course: This is a 55-year-old type I diabetic male who is blind presents emergency department for evaluation of hyperglycemia. He did have a continuous glucose monitor in place but over the last 2 weeks it is failed to function and he has not routinely checked his blood sugars. On routine check this morning they were noted to be nearly 600. He took his Humalog and then comes to the ER. On presentation to the ER his sugar had decreased to nearly 500. He did not have positive ketones nor was he acidotic. Patient received 2 L of crystalloid here in the emergency department as well as an additional 10 units of insulin. He did present however is fairly tachycardic with a heart rate in the 120s. Initial troponin was 148 and on repeat had declined to 115 making it static. This may be a demand ischemia secondary to the tachycardia. He denies chest pain or shortness of air. Chest x-ray is without focal opacity. His urine drug screen was unfortunately positive for amphetamine and methamphetamine. Patient reports that he took some pills in a glucose container that his friend had used. He is unsure what they were. I discussed with her hospitalist Dr. Sen the hyperglycemia without findings of DKA as well as elevated troponin. This gentleman will be admitted for further stabilization of his blood sugars and monitoring of the elevated troponin. Departure - Departure Disposition: ED Place in Observation Clinical Impression: Hyperglycemia due to type 1 diabetes mellitus, Elevated troponin I measurement, Positive urine drug screen Condition: Stable Record reviewed to determine appropriate education?: Yes
[2021-05-20 13:55] LABS: BASOPHILS % (AUTO) 0.5 %; EOSINOPHILS # (AUTO) 0.1 10^3/uL (0.0-0.7); EOSINOPHILS % (AUTO) 0.6 %; HCT - HEMATOCRIT 43.9 % (42.0-52.0); HGB - HEMOGLOBIN 15.6 g/dL (14.0-18.0); LYMPHOCYTES # (AUTO) 1.4 10^3/uL (1.5-3.5); LYMPHOCYTES % (AUTO) 17.7 %; MEAN CORPUSCULAR HEMOGLOBIN 31.9 pg (27.0-31.0); MEAN CORPUSCULAR HGB CONC 35.5 g/dL (32.0-36.0); MEAN CORPUSCULAR VOLUME 89.8 fL (80.0-94.0); MEAN PLATELET VOLUME 10.3 fL (7.4-11.4); MONOCYTES # (AUTO) 0.8 10^3/uL (0.0-1.0); MONOCYTES % (AUTO) 9.5 %; MUDS CUTOFF CONCENTRATIONS CUTOFF CONC BELOW:; NEUTROPHILS # (AUTO) 5.7 10^3/uL (1.5-6.6); NEUTROPHILS % (AUTO) 71.5 %; PLT - PLATELET COUNT 274 10^3/uL (130-450); RED BLOOD COUNT 4.89 10^6/uL (4.70-6.10)
[2021-05-20 14:00] LABS: BILIRUBIN,URINE NEGATIVE (NEGATIVE); GLUCOSE, URINE (UA) >=1000 mg/dL (NEGATIVE); KETONES,URINE (UA) TRACE mg/dL (NEGATIVE); LEUKOCYTE ESTERASE, URINE NEGATIVE (NEGATIVE); NITRITE,URINE NEGATIVE (NEGATIVE); OCCULT BLOOD,URINE NEGATIVE (NEGATIVE); PROTEIN,URINE NEGATIVE (NEGATIVE); UROBILINOGEN,URINE 0.2 (NORMAL) E.U./dL (NORMAL)
[2021-05-20 14:04] LABS: CLARITY,URINE CLEAR (CLEAR)
[2021-05-20 14:06] LABS: KETONES, SERUM (ACETEST) NEGATIVE (NEGATIVE)
[2021-05-20 14:07] LABS: VBG BASE EXCESS 0.8 mmol/L (-2 - +2); VBG OXYGEN SATURATION 30.1 % (60-80); VBG PH 7.332 (7.31-7.41); VBG PO2 19.7 mmHg (25-47); VBG TOTAL CO2 29.6 mmol/L (24-29)
[2021-05-20 14:09] LABS: ALBUMIN 4.4 g/dL (3.2-5.5); ALBUMIN/GLOBULIN RATIO 1.3 (1.0-2.2); ALKALINE PHOSPHATASE 61 IU/L (42-121); ALT ALANINE AMINOTRANSFERASE 36 IU/L (10-60); AST ASPARTATE AMINOTRANSFERASE 32 IU/L (10-42); BILIRUBIN,TOTAL 0.9 mg/dL (0.2-1.0); BUN - BLOOD UREA NITROGEN 20 mg/dL (6-20); CALCIUM 9.4 mg/dL (8.5-10.3); CARBON DIOXIDE - CO2 27 mmol/L (21-32); CHLORIDE 94 mmol/L (101-111); GFR - MDRD 78 (>89); GLUCOSE 451 mg/dL (70-100); LIPASE 23 U/L (22-51); POTASSIUM 4.1 mmol/L (3.5-5.0); SODIUM 132 mmol/L (135-145); TOTAL PROTEIN 7.9 g/dL (6.7-8.2)
[2021-05-20 14:10] LABS: AMPHETAMINE SCREEN,URINE POSITIVE (NEGATIVE); BARBITURATE SCREEN,UR NEGATIVE (NEGATIVE); BENZODIAZEPINES SCREEN, URINE NEGATIVE (NEGATIVE); COCAINE SCREEN URINE NEGATIVE (NEGATIVE); METHADONE SCREEN, URINE NEGATIVE (NEGATIVE); METHAMPHETAMINES SCREEN, URINE POSITIVE (NEGATIVE); OPIATE SCREEN, URINE NEGATIVE (NEGATIVE); OXYCODONE SCREEN, URINE NEGATIVE (NEGATIVE); PROPOXYPHENE SCREEN, URINE NEGATIVE (NEGATIVE); THC CANNABINOID SCREEN, URINE POSITIVE (NEGATIVE); TRICYCLIC ANTIDEPRESSANT,URINE NEGATIVE (NEGATIVE)
[2021-05-20] MEDS ORDERED: INSULIN REGULAR HUMAN 100 UNIT/1 ML 10 ML MDV IVP STA (14:31)
[2021-05-20 14:58] LABS: B. PARAPERTUSSIS- RESP PCR PAN NOT DETECTED; B. PERTUSSIS- RESP PCR PANEL NOT DETECTED; C. PNEUMONIAE- RESP PCR PANEL NOT DETECTED; CORONAVIRUS 229E-RESP PCR NOT DETECTED; CORONAVIRUS HKU1-RESP PCR NOT DETECTED; CORONAVIRUS NL63-RESP PCR NOT DETECTED; CORONAVIRUS OC43-RESP PCR NOT DETECTED; HUMAN METAPNEUMOVIRUS NOT DETECTED; INFLUENZA A- RESP PCR PANEL NOT DETECTED; INFLUENZA B - RESP PCR PANEL NOT DETECTED; M. PNEUMONIAE- RESP PCR PANEL NOT DETECTED; PARAINFLUENZA VIRUS 1 NOT DETECTED; PARAINFLUENZA VIRUS 2 NOT DETECTED; PARAINFLUENZA VIRUS 3 NOT DETECTED; PARAINFLUENZA VIRUS 4 NOT DETECTED; RHINOVIRUS/ENTEROVIRUS NOT DETECTED; RSV- RESP PCR PANEL NOT DETECTED; SARS-CoV-2 -RESP PCR PANEL NOT DETECTED
[2021-05-20] MEDS ORDERED: ONDANSETRON ODT 4 MG TABLET TL PRN (15:57)
[2021-05-20] MEDS ORDERED: ONDANSETRON 4 MG/2 ML VIAL IVP PRN (15:57)
[2021-05-20] MEDS ORDERED: SODIUM CHLORIDE FLUSH 0.9% 10 ML SYRINGE IVP PRN (15:57)
[2021-05-20] MEDS ORDERED: LACTATED RINGERS 1,000 ML IV SCH (16:00)
[2021-05-20] MEDS: INSULIN ASPART 300 UNIT/3 ML PEN SUBQ SCH ×3 (17:09→21:09)
[2021-05-20] MEDS: SODIUM CHLORIDE FLUSH 0.9% 10 ML SYRINGE IVP SCH (17:44)
--- NOTE | 2021-05-20 18:34 | HISTORY & PHYSICAL EXAMINATION ---
Chief Complaint - Chief Complaint Chief Complaint: I couldn't move my arms History of Present Illness - Admitted From Admitted From:: Home - History Obtained From Records Reviewed: Yes History obtained from: Patient, ER Provider, EMR - History of Present Illness HPI Comment/Other: This is a 55-year-old male with a past medical history significant for type 1 diabetes mellitus who presents today complaining of difficulty moving his arms. He states he was just sitting there when he was trying to bring his arms together but he could not hit his hands together. He denied any weakness just stated he could not aim correctly. This lasted for about 20 minutes. He denies any numbness and currently reports feeling fine. He states his blood glucose has been elevated for the past week. He has had difficulty with his continuous blood glucose monitoring and because of this has been unable to check his blood glucose consistently but feels like it was high. He was taking his usual Lantus and Humulin as prescribed. Today he did a fingerstick and noticed blood sugar was nearly 600 and so he came to the emergency department. He states normally his blood glucose is well controlled and his A1c was 6.8%. He denies any history of heart disease. Reports having a stress test 3 to 4 years ago which was unremarkable. He denies any chest pain at rest or with activity. Reports no nausea or vomiting. He does take aspirin and Crestor. He reports he is a non-smoker and denies a family history of heart disease. He denies any illicit drug use. Reports a history of ecstasy use in the 90s but is quite adamant he has not used anything recently. He states he was with someone a few days ago at the [employer] and he believes that he ingested something incorrectly which he thought might have been his glucose tablets but he is unsure because he is blind. He states his friend was concerned that he ingested that and the patient is wondering if that potentially could have been methamphetamines. In the emergency department, he was noted to be tachycardic. Blood glucose was over 500. EKG shows tachycardia without evidence of ischemia. Troponin was 150. Repeat 1 hour later had improved to 115. He was given 10 units of IV insulin in the emergency department. Given the hyperglycemia and elevated troponin, medicine was consulted for admission. History - Past Medical History Cardiovascular: reports: Hypertension Respiratory: reports: None Neuro: reports: None Endocrine/Autoimmune: reports: Type 1 diabetes : reports: None HEENT: reports: Chronic vision loss Psych: reports: None Musculoskeletal: reports: None Derm: reports: None MRSA Hx?: No - Past Surgical History General: reports: Cholecystectomy, Appendectomy - Family & Social History Family History Comment/Other: Patient states his mother has COPD and dementia. His father from prostate cancer. No history of heart disease. Living arrangement: At home Living Situation: With family Social History Notes: He lives at home with his mother. He denies alcohol use and reports no history of smoking. He also denies illicit drug use. - Substance History Use: Uses substance without health or social issues: Alcohol - POLST Patient has POLST: No POLST Status: Full Code Meds/Allgy - Home Medications Home Medications: Ambulatory Orders Medication Instructions Recorded Confirmed Aspirin [Aspirin EC] 81 mg PO DAILY 12/07/17 05/20/21 lisinopriL [Zestril] 5 mg PO DAILY 12/07/17 05/20/21 Insulin Aspart [NovoLOG] 5 units SQ TIDWM #0 12/08/17 05/20/21 Insulin Glargine [Lantus Solostar] 12 units SQ DAILY 05/20/21 05/20/21 Insulin Glargine [Lantus Solostar] 14 units SQ QPM 05/20/21 05/20/21 Rosuvastatin Calcium [Crestor] 10 mg PO DAILY 05/20/21 05/20/21 - Allergies Allergies/Adverse Reactions: Allergies Allergy/AdvReac Type Severity Reaction Status Date / Time No Known Drug Allergies Allergy Verified 05/20/21 13:09 Review of Systems - Constitutional Constitutional: denies: Fatigue, Fever, Chills, Malaise - Eyes Eyes: reports: Vision loss - Ears, Nose & Throat Ears, Nose & Throat: denies: Nasal discharge, Nasal congestion - Cardiovascular Cariovascular: denies: Chest pain, Exertional dyspnea, Decr. exercise tolerance - Respiratory Respiratory: denies: Cough, SOB at rest, SOB with exertion - Gastrointestinal Gastrointestinal: denies: Abdominal pain, Nausea, Vomiting - Genitourinary Genitourinary: denies: Dysuria, Frequency, Urgency, Hematuria - Musculoskeletal Musculoskeletal: denies: Limited range of motion - Integumentary Integumentary: denies: Rash - Neurological Neurological: denies: General weakness, Focal weakness, Numbness - All Other Systems All Other Systems: reports: Reviewed and negative Prior Level of Functionality: He is independent for the most part with his ADLs. Exam - Vital Signs Reviewed Vital Signs: Yes Vital Signs: Vital Signs x48h Temp Pulse Pulse Resp BP BP Pulse Ox 05/20/21 16:45 36.7 C 105 H 22 131/79 H 100 05/20/21 16:28 36.9 C 105 H 25 H 146/98 H 98 05/20/21 15:38 108 H 28 H 163/102 H 99 05/20/21 13:50 115 H 18 149/108 H 99 05/20/21 13:09 37.1 C 120 H 16 137/100 H 100 - Physical Exam General Appearance: positive: No acute distress, Alert ENT: positive: ENT inspection nml Neck: positive: Nml inspection Respiratory: positive: No respiratory distress. negative: Wheezes, Rales Cardiovascular: positive: No murmur, Tachycardia. negative: Systolic murmur Abdomen: positive: Non-tender, No distention. negative: Tenderness Skin: positive: Warm, Dry Extremities: positive: No pedal edema Neurologic/Psychiatric: positive: Other (His speech is quite pressured and at times tangential.). negative: Disoriented to person, Disoriented to place Conclusion/Plan - Problem List (1) Hyperglycemia due to type 1 diabetes mellitus Conclusion/Plan: He reports being compliant with his insulin regimen but has had difficulty over the past week due to malfunction continuous blood glucose monitor. His blood glucose is now less than 200 after treatment in the emergency department. We will give him another liter of lactated Ringer's and resume his home insulin re gimen. We will have the adult educator evaluate in the morning. Check an A1c in the morning. (2) Elevated troponin I measurement Conclusion/Plan: Troponin was initially elevated at 150 but this is trending down. Suspect this is likely demand ischemia which may be secondary to the drug use and tachycardia. We will continue to trend his troponin and likely obtain a stress test in the morning. (3) Positive urine drug screen Conclusion/Plan: His urine drug screen was positive for methamphetamines. He does admit to taking a substance which she is not sure exactly what it is given he is blind. Review of prior records reveals a negative toxicology for methamphetamines in the past. We will continue to monitor for the time being. - Lab Results Lab results reviewed: Yes Fish Bones: 05/20/21 13:50 05/20/21 13:50 - Diagnostic Imaging Results Diagnostic Imaging Results: positive: Final report reviewed - EKG Results EKG Interpreted Independently: Yes EKG Findings: EKG shows sinus tachycardia without evidence of ischemia. Core Measures - Anticipated LOS I expect patient to be DC'd or transferred within 96 hours.: Yes - Issues Hospital Issues and Management Plan: 55-year-old male with type 1 diabetes presents with hyperglycemia which is now improved. Was noted to have an elevated troponin. Will place in observation for monitoring of his blood glucose and consideration of a stress test in the morning. - DVT/VTE - Prophylaxis VTE/DVT Device ordered at admit?: Yes VTE/DVT Prophylaxis med ordered at admit?: Yes
[2021-05-20] MEDS: ACETAMINOPHEN 325 MG TABLET PO PRN (21:08)
[2021-05-20] MEDS: ATORVASTATIN 10 MG TABLET PO SCH ×2 (21:09→21:15)
[2021-05-20] MEDS: INSULIN GLARGINE 300 UNIT/3 ML PEN SUBQ SCH (21:10)
[2021-05-21] MEDS: SODIUM CHLORIDE FLUSH 0.9% 10 ML SYRINGE IVP SCH ×2 (00:39→09:10)
[2021-05-21] MEDS: ACETAMINOPHEN 325 MG TABLET PO PRN (04:20)
[2021-05-21 05:35] LABS: BASOPHILS % (AUTO) 0.4 %; EOSINOPHILS # (AUTO) 0.2 10^3/uL (0.0-0.7); LYMPHOCYTES # (AUTO) 1.6 10^3/uL (1.5-3.5); LYMPHOCYTES % (AUTO) 30.1 %; MEAN CORPUSCULAR HEMOGLOBIN 31.6 pg (27.0-31.0); MEAN CORPUSCULAR VOLUME 90.3 fL (80.0-94.0); MEAN PLATELET VOLUME 10.1 fL (7.4-11.4); MONOCYTES # (AUTO) 0.4 10^3/uL (0.0-1.0); MONOCYTES % (AUTO) 8.4 %; NEUTROPHILS % (AUTO) 57.7 %; PLT - PLATELET COUNT 222 10^3/uL (130-450); RED BLOOD COUNT 4.43 10^6/uL (4.70-6.10); RED CELL DISTRIBUTION WIDTH 11.9 % (12.0-15.0); WHITE BLOOD COUNT 5.3 x10^3/uL (4.8-10.8)
[2021-05-21 05:44] LABS: CALCIUM 8.7 mg/dL (8.5-10.3); CREATININE 0.7 mg/dL (0.6-1.2); POTASSIUM 3.4 mmol/L (3.5-5.0)
[2021-05-21] MEDS: INSULIN ASPART 300 UNIT/3 ML PEN SUBQ SCH ×4 (07:39→12:12)
[2021-05-21] MEDS ORDERED: POTASSIUM CHLORIDE 20 MEQ TABLET PO ONE (08:00)
[2021-05-21] MEDS: INSULIN GLARGINE 300 UNIT/3 ML PEN SUBQ SCH (08:08)
--- NOTE | 2021-05-21 08:20 | Discharge Plan ---
Discharge Plan Problem Reviewed?: Yes Disposition: Home, Self Care Condition: Stable Diet: Diabetic Activity Restrictions: Activity as Tolerated Health Concerns: You were seen in the hospital because of high blood sugars and an elevated heart enzyme called troponin. We wanted to ensure that your blood sugars were stable and that you are not having a heart attack. Your heart numbers trended down nicely and there was no evidence of you having a heart attack. We are unfortunately unable to obtain a stress test today but we recommend you obtain one on an outpatient basis. Your blood sugars have also been stable. An ultrasound of your heart showed normal function. Plan of Treatment: Please continue to take your insulin as previously prescribed. If your continuous blood glucose monitor does not work then please ensure that you are checking your blood sugars via fingerstick. Your continuous blood glucose monitor should be working now as it was troubleshooted. Please follow-up with your primary care provider for consideration of a stress test. Assessment: Patient expressed understanding of the treatment plan. Additional Instructions or Follow Up instructions: Please follow-up with your primary care physician in 1 week. No Smoking: If you smoke, Please STOP! Call for help. Follow-up with: Ariel La MD [Provider Admit Priv/Credential] -
[2021-05-21] MEDS ORDERED: ASPIRIN EC 81 MG TABLET PO SCH (09:00)
[2021-05-21] MEDS ORDERED: lisinopriL 5 MG TABLET PO SCH (09:00)
[2021-05-21] MEDS ORDERED: ENOXAPARIN 40 MG/0.4 ML SYRINGE SUBQ SCH (09:00)
--- NOTE | 2021-05-21 10:28 | DISCHARGE SUMMARY ---
"Discharge Summary Admit Date: 05/20/21 Discharge Date: 05/21/21 Discharging Provider: Manohar Sen Primary Care Provider: Maximo Benitez Code Status: Attempt Resuscitation Condition at Discharge: Stable Discharge Disposition: 01 Home, Self Care - DIAGNOSES Admission Diagnoses: Hyperglycemia due to type 1 diabetes mellitus Elevated troponin Positive urine drug screen Discharge Diagnoses with Status of Each Condition: Hyperglycemia due to type 1 diabetes mellitus - resolved. Elevated troponin - improved. Positive urine drug screen - stable. - HPI History of Present Illness: This is a 55-year-old male with a past medical history significant for type 1 diabetes mellitus who presents today complaining of difficulty moving his arms. He states he was just sitting there when he was trying to bring his arms together but he could not hit his hands together. He denied any weakness just stated he could not aim correctly. This lasted for about 20 minutes. He denies any numbness and currently reports feeling fine. He states his blood glucose has been elevated for the past week. He has had difficulty with his continuous blood glucose monitoring and because of this has been unable to check his blood glucose consistently but feels like it was high. He was taking his usual Lantus and Humulin as prescribed. Today he did a fingerstick and noticed blood sugar was nearly 600 and so he came to the emergency department. He states normally his blood glucose is well controlled and his A1c was 6.8%. He denies any history of heart disease. Reports having a stress test 3 to 4 years ago which was unremarkable. He denies any chest pain at rest or with activity. Reports no nausea or vomiting. He does take aspirin and Crestor. He reports he is a non-smoker and denies a family history of heart disease. He denies any illicit drug use. Reports a history of ecstasy use in the 90s but is quite adamant he has not used anything recently. He states he was with someone a few days ago at the [employer] and he believes that he ingested something incorrectly which he thought might have been his glucose tablets but he is unsure because he is blind. He states his friend was concerned that he ingested that and the patient is wondering if that potentially could have been methamphetamines. In the emergency department, he was noted to be tachycardic. Blood glucose was over 500. EKG shows tachycardia without evidence of ischemia. Troponin was 150. Repeat 1 hour later had improved to 115. He was given 10 units of IV insulin in the emergency department. Given the hyperglycemia and elevated troponin, medicine was consulted for admission. - CONSULTS | PROCEDURES Consultations: Training Professional - HOSPITAL COURSE Hospital Course: He was admitted to the floor for hyperglycemia and elevated troponin. By the time he arrived to the floor from the emergency department, his blood glucose was already less than 200. He was continued on his home insulin regimen. The shower screen installer evaluate him the following day and was able to troubleshoot his continuous blood glucose monitor. With regards to his elevated troponin, it trended down during his hospitalization. It was felt to be demand ischemia possibly related to the drug use given his urine drug screen was positive for methamphetamines although he denied any use of drugs. He did state that he did ingest something accidentally, because of his blindness, which may have potentially been a drug but he is not sure. We have planned to obtain a stress test but unfortunately could not do so during his hospitalization. His EKG did not suggest ischemia and he was chest pain-free. He was discharged home and asked to follow-up with his primary care physician for an outpatient stress test. - ALLERGIES Allergies/Adverse Reactions: Allergies Allergy/AdvReac Type Severity Reaction Status Date / Time No Known Drug Allergies Allergy Verified 05/20/21 13:09 - MEDICATIONS Home Medications: Ambulatory Orders Medication Instructions Recorded Confirmed Aspirin [Aspirin EC] 81 mg PO DAILY 12/07/17 05/20/21 lisinopriL [Zestril] 5 mg PO DAILY 12/07/17 05/20/21 Insulin Aspart [NovoLOG] 5 units SQ TIDWM #0 12/08/17 05/20/21 Insulin Glargine [Lantus Solostar] 12 units SQ DAILY 05/20/21 05/20/21 Insulin Glargine [Lantus Solostar] 14 units SQ QPM 05/20/21 05/20/21 Rosuvastatin Calcium [Crestor] 10 mg PO DAILY 05/20/21 05/20/21 - PHYSICAL EXAM AT DISCHARGE General Appearance: positive: No acute distress, Alert ENT: positive: ENT inspection nml Neck: positive: Nml inspection Respiratory: positive: No respiratory distress. negative: Wheezes, Rales Cardiovascular: positive: Regular rate & rhythm. negative: Tachycardia Abdomen: positive: Non-tender, No distention. negative: Tenderness Skin: positive: Warm, Dry Extremities: positive: No pedal edema Neurologic/Psychiatric: positive: Motor nml, Other (Pressured speech) Physical Exam Other/Comments: Vital Signs - 24 hr 05/20/21 05/21/21 05/21/21 20:43 00:09 04:49 Temperature 37.5 C 36.8 C 36.7 C Heart Rate [ 103 H 107 H 92 Brachial] Respiratory 22 22 15 Rate Blood Pressure 144/90 H 154/99 H 142/113 H [Right Brachial artery] O2 Saturation 99 100 99 05/21/21 05/21/21 05/21/21 07:30 11:23 13:46 Temperature 36.5 C 36.5 C 36.6 C Heart Rate [ 93 91 93 Brachial] Respiratory 17 18 20 Rate Blood Pressure 137/94 H 135/82 H 129/91 H [Right Brachial artery] O2 Saturation 98 95 99 Oxygen O2 Source Room air - LABS Result Diagrams: 05/21/21 05:15 05/21/21 05:15 - FOLLOW UP Follow Up: He was asked to follow-up with his primary care physician for consideration of an outpatient stress test. - TIME SPENT Time Spent in Discharge (Minutes): 31"
[2021-05-21 11:21] LABS: ESTIMATED AVERAGE GLUCOSE 183 mg/dL (70-100)
[2021-05-21 13:50] VITALS: BP 129/91
== END 2021-05-21 14:20 | disposition home or self-care (01) ==
LOC: EDUNIT# → ED 13:04 → MS2 15:57
PROVIDERS: ADMIT Internal Medicine; ATTEND Internal Medicine
DX: E10.65 Type 1 diabetes mellitus with hyperglycemia (principal); R77.8 Other specified abnormalities of plasma proteins; R82.5 Elevated urine levels of drugs, medicaments and biological substances; I10 Essential (primary) hypertension; H54.7 Unspecified visual loss; Z20.822 Contact with and (suspected) exposure to COVID-19; Z79.82 Long term (current) use of aspirin; Z79.4 Long term (current) use of insulin; Z79.899 Other long term (current) drug therapy
CPT/HCPCS: 36415; 71045; 80048; 80053; 80306; 81003; 82009; 82803; 83036; 83605; 83690; 84484; 85025; 87631; 93005; 93306; 96360; 96361; 96372; 99284; 99285; A9270; G0378; J1650; J1815; J7120; 0202U; 81001; 87086

== ENCOUNTER 2021-08-02 08:00 | Outpatient (CLI) | payer MEDICARE, OTHER ==
[2021-08-02 12:40] LABS: BUN - BLOOD UREA NITROGEN 19 mg/dL (6-20); CALCIUM 9.1 mg/dL (8.5-10.3); CARBON DIOXIDE - CO2 28 mmol/L (21-32); CHLORIDE 97 mmol/L (101-111); CHOL/HDL RATIO 2.5 (<5.0); CHOLESTEROL 150 mg/dL; CREATININE 0.8 mg/dL (0.6-1.2); GFR - MDRD 100 (>89); GLUCOSE 238 mg/dL (70-100); HDL CHOLESTEROL 61 mg/dL; LDL CHOLESTEROL,CALCULATED 77 mg/dL; LDL/HDL RATIO 1.3 (<3.6); POTASSIUM 4.4 mmol/L (3.5-5.0); SODIUM 134 mmol/L (135-145); TRIGLYCERIDES 58 mg/dL; VLDL CHOLESTEROL 12 mg/dL
[2021-08-02 16:17] LABS: ESTIMATED AVERAGE GLUCOSE 146 mg/dL (70-100); HEMOGLOBIN A1c% 6.7 % (4.27-6.07)
== END 2021-08-02 23:59 ==
LOC: LAB.WCP 08:00
PROVIDERS: ATTEND Internal Medicine
DX: I10 Essential (primary) hypertension (principal); E78.5 Hyperlipidemia, unspecified; E10.319 Type 1 diabetes mellitus with unspecified diabetic retinopathy without macular edema; J06.9 Acute upper respiratory infection, unspecified; Z20.822 Contact with and (suspected) exposure to COVID-19
CPT/HCPCS: 36415; 80048; 80061; 81599; 83036; 83721; 86769

== ENCOUNTER 2021-08-27 08:01 | Outpatient (CLI) | payer OTHER ==
[2021-08-27 11:31] LABS: BASOPHILS % (AUTO) 0.7 %; EOSINOPHILS # (AUTO) 0.2 10^3/uL (0.0-0.7); EOSINOPHILS % (AUTO) 6.7 %; HCT - HEMATOCRIT 39.6 % (42.0-52.0); HGB - HEMOGLOBIN 13.5 g/dL (14.0-18.0); LYMPHOCYTES # (AUTO) 1.4 10^3/uL (1.5-3.5); LYMPHOCYTES % (AUTO) 48.3 %; MEAN CORPUSCULAR HEMOGLOBIN 31.1 pg (27.0-31.0); MEAN CORPUSCULAR HGB CONC 34.1 g/dL (32.0-36.0); MEAN CORPUSCULAR VOLUME 91.2 fL (80.0-94.0); MEAN PLATELET VOLUME 10.9 fL (7.4-11.4); MONOCYTES # (AUTO) 0.3 10^3/uL (0.0-1.0); MONOCYTES % (AUTO) 10.7 %; NEUTROPHILS % (AUTO) 33.6 %; PLT - PLATELET COUNT 254 10^3/uL (130-450); RED BLOOD COUNT 4.34 10^6/uL (4.70-6.10); RED CELL DISTRIBUTION WIDTH 11.9 % (12.0-15.0)
[2021-08-27 11:59] LABS: RBC MORPHOLOGY (MULTIPLE) 1+ ANISOCYTOSIS (NORMAL)
[2021-08-27 12:04] LABS: ALBUMIN 3.6 g/dL (3.2-5.5); ALBUMIN/GLOBULIN RATIO 1.2 (1.0-2.2); BILIRUBIN,TOTAL 0.6 mg/dL (0.2-1.0); CALCIUM 8.8 mg/dL (8.5-10.3); CREATININE 0.8 mg/dL (0.6-1.2); POTASSIUM 4.1 mmol/L (3.5-5.0); TOTAL PROTEIN 6.6 g/dL (6.7-8.2)
[2021-08-27 12:24] LABS: ESTIMATED AVERAGE GLUCOSE 154 mg/dL (70-100)
== END 2021-08-27 08:02 | disposition home or self-care (01) ==
LOC: LAB.N 08:01
PROVIDERS: ATTEND Internal Medicine
DX: E10.319 Type 1 diabetes mellitus with unspecified diabetic retinopathy without macular edema (principal)
CPT/HCPCS: 36415; 80053; 83036; 85025

== ENCOUNTER 2022-02-08 10:25 | Day surgery (SDC) | payer OTHER ==
[2022-02-08] MEDS ORDERED: LACTATED RINGERS 1,000 ML IV ONE (10:29)
[2022-02-08] MEDS ORDERED: PROPOFOL 500 MG/50 ML 500 MG/50 ML VIAL ONE (11:01)
[2022-02-08] MEDS ORDERED: LIDOCAINE-MPF 2% 5 ML VIAL ONE (11:05)
--- NOTE | 2022-02-08 11:14 | ANESTHESIA ---
Pre-Anesthesia VS, & Labs - Diagnosis colon screening - Procedure colonoscopy Vital Signs: Temp Pulse Resp BP Pulse Ox 172/90 H 02/08/22 10:37 Height: 5 ft 9 in Weight (kg): 75 kg Body Mass Index: 24.4 BMI Classification: Healthy weight - NPO >8 hours Home Medications and Allergies Home Medications: Ambulatory Orders Insulin Aspart [NovoLOG] 2 units SQ TIDWM 02/08/22 Aspirin [Aspirin EC] 81 mg PO DAILY 12/07/17 lisinopriL [Zestril] 5 mg PO DAILY 12/07/17 Insulin Glargine [Lantus Solostar] 12 units SQ DAILY 05/20/21 Insulin Glargine [Lantus Solostar] 14 units SQ QPM 05/20/21 Rosuvastatin Calcium [Crestor] 10 mg PO DAILY 05/20/21 Insulin Aspart [NovoLOG] 2 units SQ TIDWM 02/08/22 Allergies/Adverse Reactions: Allergies Allergy/AdvReac Type Severity Reaction Status Date / Time No Known Drug Allergies Allergy Verified 05/20/21 13:09 Anes History & Medical History - Anesthetic History Anesthesia Complications: reports: No previous complications Family history of Anesthesia Complications: Denies Family history of Malignant Hyperthermia: Denies - Medical History Cardiovascular: reports: Hypertension, High cholesterol Pulmonary: reports: None Gastrointestinal: reports: None Urinary: reports: None Neuro: reports: None Musculoskeletal: reports: None Endocrine/Autoimmune: reports: Type 1 diabetes (Bloood Sugar 204 - 1 unit humalog administered to patient preoperatively) Blood Disorders: reports: None Skin: reports: None Smoking Status: Former smoker Psychosocial: reports: Cannabis (2-3xweek) History of Cancer?: No - Surgical History General: reports: Appendectomy Eyes Ears Nose Throat (EENT): reports: Detached retina repair, Other (multiple eye surgeries) Exam General: Alert Dental: WNL, Dentures full Lower Mouth Openin Fingerbreadth Neck Mobility: Normal Mallampati classification: II Thyromental Distance: 4-6 cm Respiratory: Lungs clear Cardiovascular: Regular rate Mental/Cognitive Status: Alert/Oriented X3 Cognitive Status: Within normal limits Plan Anesthesia Type: General, Total IV Consent for Procedure(s) Verified and Reviewed: Yes Code Status: Attempt Resuscitation ASA classification: 2-Mild systemic disease Is this case an emergency?: No
[2022-02-08] MEDS ORDERED: LACTATED RINGERS 250 ML IV ONE (12:10)
--- NOTE | 2022-02-08 12:21 | ANESTHESIA POST OP EVALUATION ---
Anesthesia Post Eval - Post Anesthesia Eval Vitals: Last Vital Signs Temp 36.5 C 02/08/22 12:07 Pulse 88 02/08/22 12:07 Resp 18 02/08/22 12:07 BP 102/55 L 02/08/22 12:07 Pulse Ox 96 02/08/22 12:07 CV Function Including HR & BP: Stable Pain Control: Satisfactory Nausea & Vomiting: Negative Mental Status: Baseline Respiratory Status: Airway Patent Hydration Status: Satisfactory Anesthesia Complications: None
[2022-02-08 12:49] VITALS: BP 111/66
== END 2022-02-08 10:26 | disposition home or self-care (01) ==
LOC: SDS 10:25
PROVIDERS: ATTEND Surgery
PROC: 0DBH8ZX Excision of Cecum, Via Natural or Artificial Opening Endoscopic, Diagnostic (ICD-10-PCS; 2022-02-08)
PROC: 0DBK8ZX Excision of Ascending Colon, Via Natural or Artificial Opening Endoscopic, Diagnostic (ICD-10-PCS; principal; 2022-02-08 12:00)
DX: Z12.11 Encounter for screening for malignant neoplasm of colon (principal); D12.2 Benign neoplasm of ascending colon; D12.0 Benign neoplasm of cecum; K57.30 Diverticulosis of large intestine without perforation or abscess without bleeding; E10.319 Type 1 diabetes mellitus with unspecified diabetic retinopathy without macular edema; I10 Essential (primary) hypertension; Z79.4 Long term (current) use of insulin; Z87.891 Personal history of nicotine dependence
CPT/HCPCS: 45380; 45385; J7120

== ENCOUNTER 2022-03-11 07:29 | Outpatient (CLI) | payer OTHER ==
[2022-03-11 12:05] LABS: BASOPHILS % (AUTO) 0.8 %; EOSINOPHILS # (AUTO) 0.2 10^3/uL (0.0-0.7); EOSINOPHILS % (AUTO) 4.6 %; HCT - HEMATOCRIT 41.2 % (42.0-52.0); HGB - HEMOGLOBIN 13.9 g/dL (14.0-18.0); LYMPHOCYTES # (AUTO) 1.4 10^3/uL (1.5-3.5); LYMPHOCYTES % (AUTO) 38.7 %; MEAN CORPUSCULAR HEMOGLOBIN 31.2 pg (27.0-31.0); MEAN CORPUSCULAR HGB CONC 33.7 g/dL (32.0-36.0); MEAN CORPUSCULAR VOLUME 92.6 fL (80.0-94.0); MEAN PLATELET VOLUME 10.6 fL (7.4-11.4); MONOCYTES # (AUTO) 0.4 10^3/uL (0.0-1.0); MONOCYTES % (AUTO) 10.9 %; NEUTROPHILS # (AUTO) 1.6 10^3/uL (1.5-6.6); NEUTROPHILS % (AUTO) 44.7 %; PLT - PLATELET COUNT 259 10^3/uL (130-450); RED BLOOD COUNT 4.45 10^6/uL (4.70-6.10); RED CELL DISTRIBUTION WIDTH 12.7 % (12.0-15.0); WHITE BLOOD COUNT 3.7 x10^3/uL (4.8-10.8)
[2022-03-11 13:33] LABS: ESTIMATED AVERAGE GLUCOSE 146 mg/dL (70-100); HEMOGLOBIN A1c% 6.7 % (4.27-6.07)
[2022-03-11 13:37] LABS: ALBUMIN/GLOBULIN RATIO 1.3 (1.0-2.2); ALKALINE PHOSPHATASE 43 IU/L (42-121); ALT ALANINE AMINOTRANSFERASE 33 IU/L (10-60); AST ASPARTATE AMINOTRANSFERASE 30 IU/L (10-42); BUN - BLOOD UREA NITROGEN 21 mg/dL (6-20); CALCIUM 9.2 mg/dL (8.5-10.3); CARBON DIOXIDE - CO2 30 mmol/L (21-32); CHLORIDE 102 mmol/L (101-111); CHOL/HDL RATIO 2.6 (<5.0); CHOLESTEROL 146 mg/dL; CREATININE 0.7 mg/dL (0.6-1.2); GFR - MDRD 117 (>89); GLUCOSE 182 mg/dL (70-100); HDL CHOLESTEROL 56 mg/dL; LDL CHOLESTEROL,CALCULATED 79 mg/dL; LDL/HDL RATIO 1.4 (<3.6); POTASSIUM 4.6 mmol/L (3.5-5.0); SODIUM 137 mmol/L (135-145); TOTAL PROTEIN 7.2 g/dL (6.7-8.2); TRIGLYCERIDES 55 mg/dL; VLDL CHOLESTEROL 11 mg/dL
[2022-03-11 13:41] LABS: CREATININE,URINE 129.4 mg/dL; MICROALBUM/CREATININE RATIO,UR 3.9 ug/mg (<30.0); MICROALBUMIN,URINE 0.5 mg/dL (0-300.0)
[2022-03-11 13:51] LABS: THYROID STIMULATING HORMONE 1.62 uIU/mL (0.34-5.60)
== END 2022-03-11 07:30 | disposition home or self-care (01) ==
LOC: LAB.N 07:29
PROVIDERS: ATTEND Internal Medicine
DX: I10 Essential (primary) hypertension (principal); E78.5 Hyperlipidemia, unspecified; E10.319 Type 1 diabetes mellitus with unspecified diabetic retinopathy without macular edema; Z12.5 Encounter for screening for malignant neoplasm of prostate
CPT/HCPCS: 36415; 80053; 80061; 82043; 82570; 83036; 83721; 84153; 84443; 85025

== ENCOUNTER 2024-01-05 15:46 | Outpatient (CLI) | payer OTHER, MEDICAID | END 2024-01-05 16:47 | disposition short-term general hospital (02) | LOC: EMS 15:46 | DX: R00.2 Palpitations (principal); R42 Dizziness and giddiness; R06.4 Hyperventilation | CPT/HCPCS: A0425; A0429 ==